=== PATIENT | male | born 1935 | race Caucasian/White ===

== ENCOUNTER 2018-12-11 14:52 | Inpatient (IN) ==
[2018-12-11] MEDS ORDERED: ONDANSETRON 4 MG/2 ML VIAL IV PRN (23:26)
[2018-12-11] MEDS ORDERED: ACETAMINOPHEN 325 MG TABLET PO PRN (23:26)
[2018-12-11 23:49] LABS: Basophils % 0.2 % (0.0-0.8); Hematocrit 38.7 VOL% (42.0-52.0); Hemoglobin 13.5 GM/DL (14.0-18.0); Immature Granulocytes % 0.7 %; Immature Granulocytes Absolute 0.07 #; Lymphocytes # 1.3 10*3/uL (1.4-4.0); Lymphocytes % 11.8 % (21.2-54.2); Mean Corpuscular HGB Conc 34.9 GM/DL (32-36); Mean Corpuscular Volume 97.2 FL (87-102); Mean Platelet Volume 10.7 FL (9.6-12.0); Monocytes % 9.7 % (1.7-12.7); NRBC # 0.04 10*3/uL; Neutrophils % 77.6 % (38.7-73.9); Platelet Count 240 T/CUMM (130-400); Red Blood Count 3.98 MC/CUMM (3.8-5.5); Red Cell Distribution Width 19.4 % (9.3-17.3); White Blood Count 10.7 T/CUMM (4-12)
[2018-12-11] MEDS: methylPREDNISolone SOD SUC 40 MG/1 ML VIAL IV SCH (23:56)
[2018-12-12 00:12] LABS: Albumin 3.5 G/DL (3.4-5.0); Bilirubin,Total 0.7 MG/DL (0.2-1.0); Calcium 7.9 MG/DL (8.5-10.1); Osmolality,Calculated 261.9 MOS/KG (273-304); Total Protein 7.6 G/DL (6.4-8.3)
[2018-12-12] MEDS: ALBUTEROL/IPRATROPIUM 3 ML NEB RESP TX SCH ×6 (03:41→23:54)
[2018-12-12 05:33] LABS: Calcium 8.1 MG/DL (8.5-10.1); Osmolality,Calculated 270.4 MOS/KG (273-304); Risk Ratio 2.6; Thyroid Stimulating Hormone 0.556 uIU/ml (0.358-3.74); VLDL CHOLESTEROL 18.8 MG/DL
[2018-12-12] MEDS: ASPIRIN EC 81 MG TABLET PO SCH (09:23)
[2018-12-12] MEDS: METOPROLOL TARTRATE 25 MG TABLET PO SCH ×2 (09:24→21:37)
[2018-12-12] MEDS: AZITHROMYCIN 250 MG TABLET PO SCH (09:25)
[2018-12-12] MEDS: PANTOPRAZOLE 40 MG TABLET PO SCH (09:25)
[2018-12-12] MEDS: methylPREDNISolone SOD SUC 40 MG/1 ML VIAL IV SCH ×2 (09:25→16:36)
[2018-12-12] MEDS: FLUTICASONE/SALMETEROL 250-50 DISKUS 14 DOSE INH SCH ×2 (09:26→21:37)
[2018-12-12] MEDS: ENOXAPARIN 40 MG/0.4 ML SYRINGE SUBCUT SCH (09:26)
[2018-12-13] MEDS: methylPREDNISolone SOD SUC 40 MG/1 ML VIAL IV SCH ×3 (01:35→16:31)
[2018-12-13] MEDS: ALBUTEROL/IPRATROPIUM 3 ML NEB RESP TX SCH ×5 (03:35→20:49)
[2018-12-13 05:20] LABS: Basophils % 0.1 % (0.0-0.8); Hematocrit 36.2 VOL% (42.0-52.0); Hemoglobin 12.4 GM/DL (14.0-18.0); Immature Granulocytes % 0.5 %; Immature Granulocytes Absolute 0.04 #; Lymphocytes # 1.1 10*3/uL (1.4-4.0); Lymphocytes % 13.7 % (21.2-54.2); Mean Corpuscular HGB Conc 34.3 GM/DL (32-36); Mean Corpuscular Volume 98.1 FL (87-102); Mean Platelet Volume 11.4 FL (9.6-12.0); Monocytes % 4.8 % (1.7-12.7); NRBC # 0.03 10*3/uL; Neutrophils % 80.9 % (38.7-73.9); Platelet Count 210 T/CUMM (130-400); Red Blood Count 3.69 MC/CUMM (3.8-5.5); Red Cell Distribution Width 19.5 % (9.3-17.3); White Blood Count 7.7 T/CUMM (4-12)
[2018-12-13 06:04] LABS: Calcium 8.6 MG/DL (8.5-10.1)
[2018-12-13] MEDS: ENOXAPARIN 40 MG/0.4 ML SYRINGE SUBCUT SCH (10:08)
[2018-12-13] MEDS: ASPIRIN EC 81 MG TABLET PO SCH (10:09)
[2018-12-13] MEDS: AZITHROMYCIN 250 MG TABLET PO SCH (10:09)
[2018-12-13] MEDS: METOPROLOL TARTRATE 25 MG TABLET PO SCH ×2 (10:09→21:15)
[2018-12-13] MEDS: FLUTICASONE/SALMETEROL 250-50 DISKUS 14 DOSE INH SCH ×2 (10:09→21:15)
[2018-12-13] MEDS: PANTOPRAZOLE 40 MG TABLET PO SCH (10:09)
[2018-12-14] MEDS: ALBUTEROL/IPRATROPIUM 3 ML NEB RESP TX SCH ×4 (00:19→11:05)
[2018-12-14] MEDS: methylPREDNISolone SOD SUC 40 MG/1 ML VIAL IV SCH ×2 (01:08→09:47)
[2018-12-14 06:56] LABS: Basophils % 0.2 % (0.0-0.8); Hematocrit 36.4 VOL% (42.0-52.0); Hemoglobin 12.3 GM/DL (14.0-18.0); Immature Granulocytes % 0.9 %; Immature Granulocytes Absolute 0.06 #; Lymphocytes # 0.8 10*3/uL (1.4-4.0); Lymphocytes % 12.4 % (21.2-54.2); Mean Corpuscular HGB Conc 33.8 GM/DL (32-36); Mean Corpuscular Volume 98.6 FL (87-102); Mean Platelet Volume 11.7 FL (9.6-12.0); Monocytes % 5.7 % (1.7-12.7); NRBC # 0.02 10*3/uL; Neutrophils % 80.8 % (38.7-73.9); Platelet Count 203 T/CUMM (130-400); Red Blood Count 3.69 MC/CUMM (3.8-5.5); Red Cell Distribution Width 19.8 % (9.3-17.3); White Blood Count 6.5 T/CUMM (4-12)
[2018-12-14 07:25] LABS: Calcium 7.9 MG/DL (8.5-10.1); Osmolality,Calculated 273.1 MOS/KG (273-304)
[2018-12-14] MEDS ORDERED: TRIAMTERENE/HCTZ 37.5-25 MG TABLET PO SCH (09:00)
[2018-12-14] MEDS ORDERED: ATORVASTATIN 10 MG TABLET PO SCH (09:00)
[2018-12-14] MEDS ORDERED: CLOPIDOGREL 75 MG TABLET PO SCH (09:00)
[2018-12-14] MEDS ORDERED: amLODIPine 5 MG TABLET PO SCH (09:00)
[2018-12-14] MEDS ORDERED: ASCORBIC ACID 500 MG TABLET PO SCH (09:00)
[2018-12-14] MEDS ORDERED: ENALAPRIL 20 MG TABLET PO SCH (09:00)
[2018-12-14] MEDS: ASPIRIN EC 81 MG TABLET PO SCH (09:44)
[2018-12-14] MEDS: AZITHROMYCIN 250 MG TABLET PO SCH (09:46)
[2018-12-14] MEDS: FLUTICASONE/SALMETEROL 250-50 DISKUS 14 DOSE INH SCH (09:47)
[2018-12-14] MEDS: ENOXAPARIN 40 MG/0.4 ML SYRINGE SUBCUT SCH (09:47)
[2018-12-14] MEDS: PANTOPRAZOLE 40 MG TABLET PO SCH (09:47)
[2018-12-14] MEDS: METOPROLOL TARTRATE 25 MG TABLET PO SCH (09:47)
[2018-12-14 11:36] VITALS: BP 129/108
== END 2018-12-14 12:52 | disposition home health service (06) | DRG 191 ==
LOC: N.2E
PROVIDERS: ADMIT Internal Medicine Geriatric Medicine; ATTEND Internal Medicine Geriatric Medicine

== ENCOUNTER 2020-12-02 19:29 | Inpatient (IN) ==
[2020-12-02 20:57] LABS: Basophils # 0.1 10*3/uL (0.0-0.2); Basophils % 0.4 % (0.0-0.8); Eosinophils % 0.2 % (0.00-10.9); Hematocrit 28.9 VOL% (42.0-52.0); Hemoglobin 9.9 GM/DL (14.0-18.0); Immature Granulocytes % 0.9 %; Immature Granulocytes Absolute 0.11 #; Lymphocytes % 8.2 % (21.2-54.2); Mean Corpuscular HGB Conc 34.3 GM/DL (32-36); Mean Corpuscular Volume 95.7 FL (87-102); Mean Platelet Volume 11.5 FL (9.6-12.0); Monocytes % 5.8 % (1.7-12.7); Neutrophils % 84.5 % (38.7-73.9); Platelet Count 234 T/CUMM (130-400); Red Blood Count 3.02 MC/CUMM (3.8-5.5); Red Cell Distribution Width 16.6 % (9.3-17.3); White Blood Count 12.2 T/CUMM (4-12)
[2020-12-02 21:22] LABS: Bilirubin,Total 0.9 MG/DL (0.20-1.00); Calcium 8.1 MG/DL (8.5-10.1); Osmolality,Calculated 264.7 MOS/KG (273-304); Potassium 3.8 MMOL/L (3.5-5.1); Total Protein 6.3 G/DL (6.4-8.2)
[2020-12-02 21:43] LABS: Thyroid Stimulating Hormone 1.17 uIU/ml (0.358-3.74)
[2020-12-02] MEDS ORDERED: SODIUM CHLORIDE 0.9% 1,000 ML IV STA (22:16)
[2020-12-02] MEDS ORDERED: cefTRIAXone 1,000 MG in SODIUM CHLORIDE 0.9% 100 ML IV STA (22:16)
[2020-12-02] MEDS ORDERED: ONDANSETRON 4 MG/2 ML VIAL IV PRN (23:54)
[2020-12-02] MEDS ORDERED: ACETAMINOPHEN 325 MG TABLET PO PRN (23:54)
[2020-12-02] MEDS ORDERED: ALBUTEROL/IPRATROPIUM 3 ML NEB RESP TX PRN (23:54)
[2020-12-03] MEDS ORDERED: MAGNESIUM SULF RIDER 1 GM/100 ML PREMIX IV ONE (00:08)
[2020-12-03 00:32] LABS: Bacteria,Urine Occasional /HPF (Few); Bilirubin,Urine Negative (Negative); Blood, Urine Small mg/dL (Negative); Glucose,Urine (UA) Negative (Negative); Ketones,Urine Negative (Negative); Mucus,Urine Occasional /LPF (Occasional); Nitrite,Urine Positive (Negative); Protein,Urine Negative; RBC,Urine 7 /HPF (0-4); Squamous Epithelial Cell,Urine Occasional /HPF (0-10); Urine Appearance CLEAR (Clear); Urine Color Yellow (Yellow); Urine Specific Gravity 1.011 (1.001-1.035)
[2020-12-03] MEDS: AZITHROMYCIN INJ 500 MG in SODIUM CHLORIDE 0.9% 250 ML IV SCH (01:00)
[2020-12-03] MEDS: ENOXAPARIN 40 MG/0.4 ML SYRINGE SUBCUT SCH ×2 (01:20→20:42)
[2020-12-03 07:17] LABS: Basophils % 0.5 % (0.0-0.8); Eosinophils # 0.1 10*3/uL (0.0-0.87); Eosinophils % 1.7 % (0.00-10.9); Hemoglobin 9.2 GM/DL (14.0-18.0); Immature Granulocytes % 0.7 %; Immature Granulocytes Absolute 0.06 #; Lymphocytes # 1.2 10*3/uL (1.4-4.0); Lymphocytes % 14.4 % (21.2-54.2); Mean Corpuscular HGB Conc 34.1 GM/DL (32-36); Mean Corpuscular Volume 95.1 FL (87-102); Monocytes % 7.7 % (1.7-12.7); Platelet Count 205 T/CUMM (130-400); Red Blood Count 2.84 MC/CUMM (3.8-5.5); Red Cell Distribution Width 16.6 % (9.3-17.3)
[2020-12-03 07:50] LABS: Albumin 2.6 G/DL (3.4-5.0); Bilirubin,Total 0.5 MG/DL (0.20-1.00); Calcium 8.3 MG/DL (8.5-10.1); Osmolality,Calculated 267.4 MOS/KG (273-304); Potassium 3.3 MMOL/L (3.5-5.1); Total Protein 6.4 G/DL (6.4-8.2)
[2020-12-03] MEDS ORDERED: TRIAMTERENE/HCTZ 37.5-25 MG TABLET PO SCH (09:00)
[2020-12-03] MEDS: ENALAPRIL 20 MG TABLET PO SCH (09:07)
[2020-12-03] MEDS: guaiFENesin/DM ER 600-30 MG TABLET PO SCH ×2 (09:08→20:45)
[2020-12-03] MEDS: METOPROLOL TARTRATE 25 MG TABLET PO SCH ×2 (09:08→20:42)
[2020-12-03] MEDS: TAMSULOSIN 0.4 MG CAPSULE PO SCH (09:09)
[2020-12-03] MEDS: ASPIRIN EC 81 MG TABLET PO SCH (09:09)
[2020-12-03] MEDS: MECLIZINE 12.5 MG TABLET PO SCH ×3 (09:09→20:42)
[2020-12-03] MEDS: PANTOPRAZOLE 40 MG TABLET PO SCH (09:09)
[2020-12-03] MEDS: CLOPIDOGREL 75 MG TABLET PO SCH (09:09)
[2020-12-03] MEDS ORDERED: BENZONATATE 100 MG CAPSULE PO SCH (21:00)
[2020-12-04] MEDS: cefTRIAXone 1,000 MG in SODIUM CHLORIDE 0.9% 100 ML IV SCH (00:35)
[2020-12-04] MEDS: ENOXAPARIN 40 MG/0.4 ML SYRINGE SUBCUT SCH (00:35)
[2020-12-04] MEDS: AZITHROMYCIN INJ 500 MG in SODIUM CHLORIDE 0.9% 250 ML IV SCH ×2 (01:20→17:04)
[2020-12-04 05:00] LABS: Basophils % 0.6 % (0.0-0.8); Eosinophils # 0.2 10*3/uL (0.0-0.87); Eosinophils % 3.4 % (0.00-10.9); Hematocrit 26.9 VOL% (42.0-52.0); Hemoglobin 9.3 GM/DL (14.0-18.0); Immature Granulocytes % 0.9 %; Immature Granulocytes Absolute 0.06 #; Mean Corpuscular HGB Conc 34.6 GM/DL (32-36); Mean Corpuscular Volume 95.1 FL (87-102); Monocytes % 9.3 % (1.7-12.7); Neutrophils % 71.8 % (38.7-73.9); Platelet Count 206 T/CUMM (130-400); Red Blood Count 2.83 MC/CUMM (3.8-5.5)
[2020-12-04 05:24] LABS: Calcium 8.1 MG/DL (8.5-10.1); Osmolality,Calculated 263.5 MOS/KG (273-304); Potassium 2.9 MMOL/L (3.5-5.1)
[2020-12-04] MEDS ORDERED: POTASSIUM CHLORIDE 20 MEQ TABLET PO ONE (07:18)
[2020-12-04] MEDS: guaiFENesin/DM ER 600-30 MG TABLET PO SCH ×2 (09:31→21:26)
[2020-12-04] MEDS: TAMSULOSIN 0.4 MG CAPSULE PO SCH (09:31)
[2020-12-04] MEDS: CLOPIDOGREL 75 MG TABLET PO SCH (09:32)
[2020-12-04] MEDS: PANTOPRAZOLE 40 MG TABLET PO SCH (09:32)
[2020-12-04] MEDS: ASPIRIN EC 81 MG TABLET PO SCH (09:32)
[2020-12-04] MEDS: MECLIZINE 12.5 MG TABLET PO SCH ×3 (09:34→21:26)
[2020-12-04] MEDS: ENALAPRIL 20 MG TABLET PO SCH (09:34)
[2020-12-04] MEDS: METOPROLOL TARTRATE 25 MG TABLET PO SCH ×2 (09:35→21:26)
[2020-12-04] MEDS ORDERED: KETOROLAC 15 MG/1 ML VIAL IV ONE (10:01)
[2020-12-04] MEDS: BENZONATATE 100 MG CAPSULE PO SCH ×2 (11:04→21:26)
[2020-12-04] MEDS: DICLOFENAC 1% GEL 100 GM TUBE TOP SCH ×3 (11:04→21:57)
[2020-12-04] MEDS: ALBUTEROL/IPRATROPIUM 3 ML NEB RESP TX SCH ×2 (15:12→20:08)
[2020-12-05] MEDS: ALBUTEROL/IPRATROPIUM 3 ML NEB RESP TX SCH ×4 (00:11→19:24)
[2020-12-05] MEDS: ENOXAPARIN 40 MG/0.4 ML SYRINGE SUBCUT SCH (01:28)
[2020-12-05] MEDS: cefTRIAXone 1,000 MG in SODIUM CHLORIDE 0.9% 100 ML IV SCH (01:28)
[2020-12-05] MEDS ORDERED: POTASSIUM CHLORIDE 20 MEQ TABLET PO ONE (07:22)
[2020-12-05] MEDS: ENALAPRIL 20 MG TABLET PO SCH (10:37)
[2020-12-05] MEDS: MECLIZINE 12.5 MG TABLET PO SCH ×3 (10:37→21:04)
[2020-12-05] MEDS: BENZONATATE 100 MG CAPSULE PO SCH ×2 (10:37→21:04)
[2020-12-05] MEDS: ASPIRIN EC 81 MG TABLET PO SCH (10:37)
[2020-12-05] MEDS: PANTOPRAZOLE 40 MG TABLET PO SCH (10:37)
[2020-12-05] MEDS: TAMSULOSIN 0.4 MG CAPSULE PO SCH (10:38)
[2020-12-05] MEDS: guaiFENesin/DM ER 600-30 MG TABLET PO SCH ×2 (10:38→21:04)
[2020-12-05] MEDS: CLOPIDOGREL 75 MG TABLET PO SCH (10:38)
[2020-12-05] MEDS: METOPROLOL TARTRATE 25 MG TABLET PO SCH ×2 (10:39→21:05)
[2020-12-05] MEDS: DICLOFENAC 1% GEL 100 GM TUBE TOP SCH ×3 (10:39→21:18)
[2020-12-05] MEDS: AZITHROMYCIN INJ 500 MG in SODIUM CHLORIDE 0.9% 250 ML IV SCH (13:30)
[2020-12-05] MEDS: MELOXICAM 7.5 MG TABLET PO SCH (13:30)
[2020-12-06] MEDS: ALBUTEROL/IPRATROPIUM 3 ML NEB RESP TX SCH ×4 (00:15→19:25)
[2020-12-06] MEDS: cefTRIAXone 1,000 MG in SODIUM CHLORIDE 0.9% 100 ML IV SCH ×2 (00:51→21:30)
[2020-12-06] MEDS: ENOXAPARIN 40 MG/0.4 ML SYRINGE SUBCUT SCH ×3 (00:51→22:30)
[2020-12-06 05:30] LABS: Basophils % 0.6 % (0.0-0.8); Eosinophils # 0.4 10*3/uL (0.0-0.87); Eosinophils % 5.1 % (0.00-10.9); Hematocrit 25.1 VOL% (42.0-52.0); Hemoglobin 8.5 GM/DL (14.0-18.0); Immature Granulocytes % 0.8 %; Immature Granulocytes Absolute 0.06 #; Lymphocytes # 1.2 10*3/uL (1.4-4.0); Lymphocytes % 16.6 % (21.2-54.2); Mean Corpuscular HGB Conc 33.9 GM/DL (32-36); Mean Corpuscular Volume 96.9 FL (87-102); Mean Platelet Volume 11.7 FL (9.6-12.0); Monocytes % 8.7 % (1.7-12.7); Neutrophils % 68.2 % (38.7-73.9); Platelet Count 216 T/CUMM (130-400); Red Blood Count 2.59 MC/CUMM (3.8-5.5); Red Cell Distribution Width 16.6 % (9.3-17.3); White Blood Count 7.1 T/CUMM (4-12)
[2020-12-06 06:00] LABS: Osmolality,Calculated 268.1 MOS/KG (273-304)
[2020-12-06] MEDS ORDERED: BISACODYL 5 MG TABLET PO ONE (09:09)
[2020-12-06] MEDS: POLYETHYLENE GLYCOL POWDER 17 GM PACK PO SCH (09:41)
[2020-12-06] MEDS: guaiFENesin/DM ER 600-30 MG TABLET PO SCH ×2 (09:42→21:17)
[2020-12-06] MEDS: ASPIRIN EC 81 MG TABLET PO SCH (09:42)
[2020-12-06] MEDS: ENALAPRIL 20 MG TABLET PO SCH (09:43)
[2020-12-06] MEDS: METOPROLOL TARTRATE 25 MG TABLET PO SCH ×2 (09:43→21:17)
[2020-12-06] MEDS: TAMSULOSIN 0.4 MG CAPSULE PO SCH (09:44)
[2020-12-06] MEDS: MELOXICAM 7.5 MG TABLET PO SCH (09:44)
[2020-12-06] MEDS: PANTOPRAZOLE 40 MG TABLET PO SCH (09:44)
[2020-12-06] MEDS: BENZONATATE 100 MG CAPSULE PO SCH ×2 (09:44→21:17)
[2020-12-06] MEDS: CLOPIDOGREL 75 MG TABLET PO SCH (09:44)
[2020-12-06] MEDS: DICLOFENAC 1% GEL 100 GM TUBE TOP SCH ×3 (09:45→21:20)
[2020-12-06] MEDS: MECLIZINE 12.5 MG TABLET PO SCH ×3 (09:48→21:17)
[2020-12-06] MEDS: AZITHROMYCIN INJ 500 MG in SODIUM CHLORIDE 0.9% 250 ML IV SCH (15:11)
[2020-12-07] MEDS: ALBUTEROL/IPRATROPIUM 3 ML NEB RESP TX SCH ×4 (01:14→20:20)
[2020-12-07] MEDS ORDERED: FUROSEMIDE 40 MG/4 ML VIAL IV ONE (08:12)
[2020-12-07] MEDS: POLYETHYLENE GLYCOL POWDER 17 GM PACK PO SCH (08:18)
[2020-12-07] MEDS: MELOXICAM 7.5 MG TABLET PO SCH (08:18)
[2020-12-07] MEDS: ENALAPRIL 20 MG TABLET PO SCH (08:18)
[2020-12-07] MEDS: MECLIZINE 12.5 MG TABLET PO SCH ×3 (08:18→20:49)
[2020-12-07] MEDS: CLOPIDOGREL 75 MG TABLET PO SCH (08:18)
[2020-12-07] MEDS: TAMSULOSIN 0.4 MG CAPSULE PO SCH (08:18)
[2020-12-07] MEDS: guaiFENesin/DM ER 600-30 MG TABLET PO SCH ×2 (08:19→20:49)
[2020-12-07] MEDS: ASPIRIN EC 81 MG TABLET PO SCH (08:19)
[2020-12-07] MEDS: METOPROLOL TARTRATE 25 MG TABLET PO SCH ×2 (08:19→20:48)
[2020-12-07] MEDS: PANTOPRAZOLE 40 MG TABLET PO SCH (08:19)
[2020-12-07] MEDS: BENZONATATE 100 MG CAPSULE PO SCH ×2 (08:19→20:49)
[2020-12-07] MEDS: DICLOFENAC 1% GEL 100 GM TUBE TOP SCH ×3 (08:20→20:49)
[2020-12-07] MEDS: AZITHROMYCIN INJ 500 MG in SODIUM CHLORIDE 0.9% 250 ML IV SCH (16:30)
[2020-12-07] MEDS: cefTRIAXone 1,000 MG in SODIUM CHLORIDE 0.9% 100 ML IV SCH ×2 (20:49→23:18)
[2020-12-07] MEDS: ENOXAPARIN 40 MG/0.4 ML SYRINGE SUBCUT SCH ×2 (20:49→23:20)
[2020-12-08] MEDS: ALBUTEROL/IPRATROPIUM 3 ML NEB RESP TX SCH ×2 (00:29→07:51)
[2020-12-08 05:36] LABS: Basophils # 0.1 10*3/uL (0.0-0.2); Basophils % 0.8 % (0.0-0.8); Eosinophils # 0.4 10*3/uL (0.0-0.87); Eosinophils % 5.4 % (0.00-10.9); Hematocrit 26.5 VOL% (42.0-52.0); Immature Granulocytes % 0.6 %; Immature Granulocytes Absolute 0.04 #; Lymphocytes # 1.9 10*3/uL (1.4-4.0); Lymphocytes % 27.1 % (21.2-54.2); Mean Corpuscular Volume 97.1 FL (87-102); Mean Platelet Volume 11.5 FL (9.6-12.0); Monocytes % 8.6 % (1.7-12.7); Neutrophils % 57.5 % (38.7-73.9); Platelet Count 236 T/CUMM (130-400); Red Blood Count 2.73 MC/CUMM (3.8-5.5); Red Cell Distribution Width 16.7 % (9.3-17.3); White Blood Count 7.1 T/CUMM (4-12)
[2020-12-08 06:01] LABS: Calcium 8.3 MG/DL (8.5-10.1); Osmolality,Calculated 267.2 MOS/KG (273-304); Potassium 3.6 MMOL/L (3.5-5.1)
[2020-12-08] MEDS: CLOPIDOGREL 75 MG TABLET PO SCH (08:44)
[2020-12-08] MEDS: BENZONATATE 100 MG CAPSULE PO SCH (08:44)
[2020-12-08] MEDS: guaiFENesin/DM ER 600-30 MG TABLET PO SCH (08:45)
[2020-12-08] MEDS: PANTOPRAZOLE 40 MG TABLET PO SCH (08:45)
[2020-12-08] MEDS: ASPIRIN EC 81 MG TABLET PO SCH (08:45)
[2020-12-08] MEDS: MECLIZINE 12.5 MG TABLET PO SCH (08:45)
[2020-12-08] MEDS: TAMSULOSIN 0.4 MG CAPSULE PO SCH (08:45)
[2020-12-08] MEDS: METOPROLOL TARTRATE 25 MG TABLET PO SCH (08:45)
[2020-12-08] MEDS: POLYETHYLENE GLYCOL POWDER 17 GM PACK PO SCH (08:45)
[2020-12-08] MEDS: MELOXICAM 7.5 MG TABLET PO SCH (08:45)
[2020-12-08] MEDS: ENALAPRIL 20 MG TABLET PO SCH (08:45)
[2020-12-08] MEDS: DICLOFENAC 1% GEL 100 GM TUBE TOP SCH (08:46)
[2020-12-08 11:07] VITALS: BP 135/77
== END 2020-12-08 13:48 | disposition home health service (06) | DRG 194 ==
LOC: EDUNIT# → EDBD → N.ED 19:29 → N.EDINP 19:29 → N.4E 12-03 00:29
PROVIDERS: ADMIT Internal Medicine; ATTEND Internal Medicine

== ENCOUNTER 2020-12-24 19:04 | Inpatient (IN) ==
[2020-12-24 19:41] LABS: Basophils % 0.4 % (0.0-0.8); Eosinophils # 0.1 10*3/uL (0.0-0.87); Eosinophils % 0.8 % (0.00-10.9); Hematocrit 29.1 VOL% (42.0-52.0); Hemoglobin 10.1 GM/DL (14.0-18.0); Immature Granulocytes % 0.4 %; Immature Granulocytes Absolute 0.03 #; Lymphocytes # 0.9 10*3/uL (1.4-4.0); Mean Corpuscular HGB Conc 34.7 GM/DL (32-36); Mean Corpuscular Volume 95.1 FL (87-102); Mean Platelet Volume 11.8 FL (9.6-12.0); Monocytes % 6.8 % (1.7-12.7); Neutrophils % 80.6 % (38.7-73.9); Platelet Count 215 T/CUMM (130-400); Red Blood Count 3.06 MC/CUMM (3.8-5.5); Red Cell Distribution Width 16.8 % (9.3-17.3); White Blood Count 7.7 T/CUMM (4-12)
[2020-12-24 19:50] LABS: Bilirubin,Urine Negative (Negative); Blood, Urine Negative (Negative); Glucose,Urine (UA) Negative (Negative); Ketones,Urine Negative (Negative); Mucus,Urine Occasional /LPF (Occasional); Nitrite,Urine Negative (Negative); Protein,Urine Negative; RBC,Urine 2 /HPF (0-4); Squamous Epithelial Cell,Urine Occasional /HPF (0-10); Urine Appearance CLEAR (Clear); Urine Color Yellow (Yellow); Urine Specific Gravity 1.012 (1.001-1.035)
[2020-12-24 19:58] LABS: Bilirubin,Total 0.6 MG/DL (0.20-1.00); Calcium 8.9 MG/DL (8.5-10.1); Osmolality,Calculated 259.1 MOS/KG (273-304); Potassium 3.1 MMOL/L (3.5-5.1); Total Protein 7.4 G/DL (6.4-8.2)
[2020-12-24] MEDS ORDERED: SODIUM CHLORIDE 0.9% 1,000 ML IV STA (21:01)
[2020-12-24] MEDS ORDERED: MORPHINE 2 MG/1 ML SYRINGE IV PRN (21:36)
[2020-12-24] MEDS ORDERED: ACETAMINOPHEN 325 MG TABLET PO PRN (21:36)
[2020-12-24] MEDS ORDERED: NICOTINE 21 MG/24 HR PATCH TRANSDERM PRN (21:36)
[2020-12-24] MEDS ORDERED: hydrALAZINE 20 MG/1 ML VIAL IV PRN (21:36)
[2020-12-24] MEDS ORDERED: DEXTROSE 50% 25 GM/50 ML VIAL IV PRN (21:36)
[2020-12-24] MEDS ORDERED: GLUCAGON 1 MG VIAL IM PRN (21:36)
[2020-12-24] MEDS ORDERED: diphenhydrAMINE CAP 25 MG CAPSULE PO PRN (21:36)
[2020-12-24] MEDS ORDERED: TOLVAPTAN 15 MG TABLET PO ONE (23:00)
[2020-12-24] MEDS: guaiFENesin/DM ER 600-30 MG TABLET PO PRN (23:18)
[2020-12-24] MEDS: ZALEPLON 5 MG CAPSULE PO PRN (23:19)
[2020-12-25] MEDS: ALBUTEROL/IPRATROPIUM 3 ML NEB RESP TX SCH ×4 (03:03→19:40)
[2020-12-25 05:26] LABS: Basophils % 0.2 % (0.0-0.8); Eosinophils % 0.6 % (0.00-10.9); Hemoglobin 9.4 GM/DL (14.0-18.0); Immature Granulocytes % 0.5 %; Immature Granulocytes Absolute 0.03 #; Lymphocytes # 1.2 10*3/uL (1.4-4.0); Lymphocytes % 19.5 % (21.2-54.2); Mean Corpuscular HGB Conc 33.6 GM/DL (32-36); Mean Corpuscular Volume 93.6 FL (87-102); Mean Platelet Volume 11.6 FL (9.6-12.0); Monocytes % 7.4 % (1.7-12.7); Neutrophils % 71.8 % (38.7-73.9); Platelet Count 209 T/CUMM (130-400); Red Blood Count 2.99 MC/CUMM (3.8-5.5); Red Cell Distribution Width 16.6 % (9.3-17.3); White Blood Count 6.2 T/CUMM (4-12)
[2020-12-25 05:42] LABS: Calcium 8.8 MG/DL (8.5-10.1); Osmolality,Calculated 260.8 MOS/KG (273-304)
[2020-12-25] MEDS: POTASSIUM CHLORIDE 20 MEQ TABLET PO PRN (09:02)
[2020-12-25] MEDS: BISACODYL 5 MG TABLET PO SCH (09:03)
[2020-12-25] MEDS: PANTOPRAZOLE 40 MG TABLET PO SCH (09:04)
[2020-12-25] MEDS: ENOXAPARIN 40 MG/0.4 ML SYRINGE SUBCUT SCH (09:04)
[2020-12-25] MEDS: DOCUSATE SODIUM 100 MG CAPSULE PO SCH ×2 (09:04→20:38)
[2020-12-25] MEDS: ONDANSETRON 4 MG/2 ML VIAL IV PRN (12:32)
[2020-12-25] MEDS ORDERED: MAGNESIUM CITRATE 300 ML BOTTLE PO ONE (14:00)
[2020-12-25] MEDS: ZALEPLON 5 MG CAPSULE PO PRN (20:38)
[2020-12-26] MEDS: ALBUTEROL/IPRATROPIUM 3 ML NEB RESP TX SCH ×4 (01:37→19:57)
[2020-12-26] MEDS: DOCUSATE SODIUM 100 MG CAPSULE PO SCH ×2 (08:59→21:08)
[2020-12-26] MEDS: POTASSIUM CHLORIDE 20 MEQ TABLET PO PRN ×4 (08:59→21:08)
[2020-12-26] MEDS: PANTOPRAZOLE 40 MG TABLET PO SCH (09:00)
[2020-12-26] MEDS: BISACODYL 5 MG TABLET PO SCH (09:00)
[2020-12-26] MEDS: LACTULOSE 20 GM/30 ML UDCUP PO PRN ×2 (09:01→21:08)
[2020-12-26] MEDS: ENOXAPARIN 40 MG/0.4 ML SYRINGE SUBCUT SCH (09:01)
[2020-12-26] MEDS: POTASSIUM CHLORIDE RIDER 20 MEQ/100 ML PREMIX IV PRN (15:08)
[2020-12-26] MEDS: ONDANSETRON 4 MG/2 ML VIAL IV PRN (21:32)
[2020-12-27] MEDS: ALBUTEROL/IPRATROPIUM 3 ML NEB RESP TX SCH ×4 (00:24→18:29)
[2020-12-27] MEDS: ONDANSETRON 4 MG/2 ML VIAL IV PRN (06:00)
[2020-12-27 06:08] LABS: Calcium 8.8 MG/DL (8.5-10.1); Osmolality,Calculated 254.2 MOS/KG (273-304)
[2020-12-27] MEDS: BISACODYL 5 MG TABLET PO SCH (10:03)
[2020-12-27] MEDS: HYDROmorphone 2 MG/1 ML VIAL IV PRN ×2 (10:03→17:00)
[2020-12-27] MEDS: MAGNESIUM CITRATE 300 ML BOTTLE PO SCH (10:04)
[2020-12-27] MEDS: SODIUM CHLORIDE 0.9% 1,000 ML IV SCH (10:04)
[2020-12-27] MEDS: DOCUSATE SODIUM 100 MG CAPSULE PO SCH ×2 (10:04→20:57)
[2020-12-27] MEDS: PANTOPRAZOLE 40 MG TABLET PO SCH (10:04)
[2020-12-27] MEDS: ENOXAPARIN 40 MG/0.4 ML SYRINGE SUBCUT SCH (10:04)
[2020-12-28] MEDS: HYDROmorphone 2 MG/1 ML VIAL IV PRN ×3 (00:18→23:02)
[2020-12-28] MEDS: ALBUTEROL/IPRATROPIUM 3 ML NEB RESP TX SCH ×4 (01:01→20:13)
[2020-12-28] MEDS: ONDANSETRON 4 MG/2 ML VIAL IV PRN (05:19)
[2020-12-28 06:40] LABS: Basophils % 0.1 % (0.0-0.8); Eosinophils % 0.3 % (0.00-10.9); Hematocrit 28.5 VOL% (42.0-52.0); Hemoglobin 9.9 GM/DL (14.0-18.0); Immature Granulocytes % 0.4 %; Immature Granulocytes Absolute 0.03 #; Lymphocytes # 0.6 10*3/uL (1.4-4.0); Lymphocytes % 8.7 % (21.2-54.2); Mean Corpuscular HGB Conc 34.7 GM/DL (32-36); Mean Corpuscular Volume 93.1 FL (87-102); Mean Platelet Volume 10.3 FL (9.6-12.0); Monocytes % 6.6 % (1.7-12.7); Neutrophils % 83.9 % (38.7-73.9); Platelet Count 245 T/CUMM (130-400); Red Blood Count 3.06 MC/CUMM (3.8-5.5); Red Cell Distribution Width 16.5 % (9.3-17.3); White Blood Count 7.3 T/CUMM (4-12)
[2020-12-28 07:10] LABS: Calcium 8.5 MG/DL (8.5-10.1); Osmolality,Calculated 257.2 MOS/KG (273-304); Potassium 4.1 MMOL/L (3.5-5.1)
[2020-12-28] MEDS: SODIUM CHLORIDE 0.9% 1,000 ML IV SCH (09:39)
[2020-12-28] MEDS: ENOXAPARIN 40 MG/0.4 ML SYRINGE SUBCUT SCH (09:42)
[2020-12-28] MEDS: PANTOPRAZOLE 40 MG TABLET PO SCH (09:43)
[2020-12-28] MEDS: MAGNESIUM CITRATE 300 ML BOTTLE PO SCH (09:44)
[2020-12-28] MEDS: DOCUSATE SODIUM 100 MG CAPSULE PO SCH ×2 (09:44→20:34)
[2020-12-28] MEDS: BISACODYL 5 MG TABLET PO SCH (09:44)
[2020-12-28 23:25] LABS: Bilirubin,Urine Negative (Negative); Blood, Urine Negative (Negative); Glucose,Urine (UA) Negative (Negative); Ketones,Urine Negative (Negative); Mucus,Urine Occasional /LPF (Occasional); Nitrite,Urine Negative (Negative); Protein,Urine Negative; RBC,Urine 3 /HPF (0-4); Urine Appearance CLEAR (Clear); Urine Color Yellow (Yellow); Urine Specific Gravity 1.034 (1.001-1.035); Urine Urobilinogen < 2.0 EU/DL (0.2-1.0)
[2020-12-29] MEDS: ALBUTEROL/IPRATROPIUM 3 ML NEB RESP TX SCH ×4 (00:01→19:37)
[2020-12-29] MEDS: SODIUM CHLORIDE 0.9% 1,000 ML IV SCH (03:46)
[2020-12-29 05:00] LABS: Basophils % 0.3 % (0.0-0.8); Eosinophils # 0.1 10*3/uL (0.0-0.87); Eosinophils % 1.1 % (0.00-10.9); Hematocrit 28.1 VOL% (42.0-52.0); Hemoglobin 9.3 GM/DL (14.0-18.0); Immature Granulocytes % 0.4 %; Immature Granulocytes Absolute 0.03 #; Lymphocytes # 1.2 10*3/uL (1.4-4.0); Lymphocytes % 17.2 % (21.2-54.2); Mean Corpuscular HGB Conc 33.1 GM/DL (32-36); Mean Corpuscular Volume 96.6 FL (87-102); Mean Platelet Volume 11.2 FL (9.6-12.0); Platelet Count 253 T/CUMM (130-400); Red Blood Count 2.91 MC/CUMM (3.8-5.5); Red Cell Distribution Width 16.8 % (9.3-17.3); White Blood Count 7.1 T/CUMM (4-12)
[2020-12-29 05:20] LABS: Albumin 2.5 G/DL (3.4-5.0); Bilirubin,Direct 0.13 MG/DL (0.0-0.20); Bilirubin,Indirect 0.5 MG/DL (0.0-1.0); Bilirubin,Total 0.6 MG/DL (0.20-1.00); Calcium 8.4 MG/DL (8.5-10.1); Osmolality,Calculated 258.2 MOS/KG (273-304); Potassium 4.2 MMOL/L (3.5-5.1)
[2020-12-29] MEDS: MAGNESIUM CITRATE 300 ML BOTTLE PO SCH (09:09)
[2020-12-29] MEDS: BISACODYL 5 MG TABLET PO SCH (09:09)
[2020-12-29] MEDS: DOCUSATE SODIUM 100 MG CAPSULE PO SCH ×2 (09:09→20:42)
[2020-12-29] MEDS: PANTOPRAZOLE 40 MG TABLET PO SCH (09:09)
[2020-12-29] MEDS: ENOXAPARIN 40 MG/0.4 ML SYRINGE SUBCUT SCH (09:11)
[2020-12-29] MEDS: HYDROmorphone 2 MG/1 ML VIAL IV PRN ×2 (10:46→16:15)
[2020-12-29] MEDS: PIPERACILLIN/TAZOBACTAM 3,375 MG in SODIUM CHLORIDE 0.9% 100 ML IV SCH ×2 (11:42→17:59)
[2020-12-29] MEDS: VANCOMYCIN INJ 1,500 MG in SODIUM CHLORIDE 0.9% 500 ML IV SCH (15:50)
[2020-12-29] MEDS: BUDESONIDE 0.5 MG/2 ML NEB RESP TX SCH (19:37)
[2020-12-29] MEDS: ZALEPLON 5 MG CAPSULE PO PRN (20:42)
[2020-12-30] MEDS: HYDROmorphone 2 MG/1 ML VIAL IV PRN (00:13)
[2020-12-30] MEDS: ALBUTEROL/IPRATROPIUM 3 ML NEB RESP TX SCH ×4 (00:20→20:07)
[2020-12-30] MEDS: VANCOMYCIN INJ 1,500 MG in SODIUM CHLORIDE 0.9% 500 ML IV SCH ×2 (03:00→16:58)
[2020-12-30] MEDS: SODIUM CHLORIDE 0.9% 1,000 ML IV SCH (03:14)
[2020-12-30] MEDS: PIPERACILLIN/TAZOBACTAM 3,375 MG in SODIUM CHLORIDE 0.9% 100 ML IV SCH ×3 (05:00→21:24)
[2020-12-30 05:44] LABS: Basophils % 0.3 % (0.0-0.8); Eosinophils # 0.2 10*3/uL (0.0-0.87); Eosinophils % 2.3 % (0.00-10.9); Hemoglobin 8.7 GM/DL (14.0-18.0); Immature Granulocytes % 0.8 %; Immature Granulocytes Absolute 0.05 #; Lymphocytes # 1.4 10*3/uL (1.4-4.0); Lymphocytes % 21.1 % (21.2-54.2); Mean Corpuscular HGB Conc 33.5 GM/DL (32-36); Mean Corpuscular Volume 94.5 FL (87-102); Mean Platelet Volume 10.9 FL (9.6-12.0); Monocytes % 10.2 % (1.7-12.7); Neutrophils % 65.3 % (38.7-73.9); Platelet Count 245 T/CUMM (130-400); Red Blood Count 2.75 MC/CUMM (3.8-5.5); Red Cell Distribution Width 16.6 % (9.3-17.3); White Blood Count 6.7 T/CUMM (4-12)
[2020-12-30 06:15] LABS: Calcium 8.3 MG/DL (8.5-10.1); Osmolality,Calculated 256.2 MOS/KG (273-304); Potassium 3.5 MMOL/L (3.5-5.1)
[2020-12-30] MEDS: BUDESONIDE 0.5 MG/2 ML NEB RESP TX SCH ×2 (07:45→20:08)
[2020-12-30] MEDS: BISACODYL 5 MG TABLET PO SCH (09:55)
[2020-12-30] MEDS: PANTOPRAZOLE 40 MG TABLET PO SCH (09:55)
[2020-12-30] MEDS: DOCUSATE SODIUM 100 MG CAPSULE PO SCH ×2 (09:55→21:24)
[2020-12-30] MEDS: ENOXAPARIN 40 MG/0.4 ML SYRINGE SUBCUT SCH (09:56)
[2020-12-30] MEDS: MAGNESIUM CITRATE 300 ML BOTTLE PO SCH (09:58)
[2020-12-30] MEDS: LACTULOSE 20 GM/30 ML UDCUP PO SCH ×4 (11:15→21:50)
[2020-12-30] MEDS: ONDANSETRON 4 MG/2 ML VIAL IV PRN (12:04)
[2020-12-30] MEDS: guaiFENesin/DM ER 600-30 MG TABLET PO PRN (21:24)
[2020-12-30] MEDS: ZALEPLON 5 MG CAPSULE PO PRN (21:24)
[2020-12-30 22:56] LABS: ABG Base Excess 6.7 MMOL/L (-2.5-2.5); ABG HCO3 30.5 MMOL/L (20-26); ABG PCO2 39.2 MM HG (35-48); ABG PH 7.498 (7.35-7.45); ABG TCO2 28.5 MMOL/L (23-27)
[2020-12-31] MEDS: ALBUTEROL/IPRATROPIUM 3 ML NEB RESP TX SCH ×4 (00:31→19:50)
[2020-12-31] MEDS: VANCOMYCIN INJ 1,500 MG in SODIUM CHLORIDE 0.9% 500 ML IV SCH ×2 (03:08→18:30)
[2020-12-31] MEDS: LACTULOSE 20 GM/30 ML UDCUP PO SCH ×4 (04:07→21:56)
[2020-12-31] MEDS: SODIUM CHLORIDE 0.9% 1,000 ML IV SCH ×2 (05:09→17:46)
[2020-12-31] MEDS: PIPERACILLIN/TAZOBACTAM 3,375 MG in SODIUM CHLORIDE 0.9% 100 ML IV SCH ×3 (05:38→21:57)
[2020-12-31] MEDS: BUDESONIDE 0.5 MG/2 ML NEB RESP TX SCH ×2 (07:25→19:51)
[2020-12-31] MEDS: BISACODYL 5 MG TABLET PO SCH (10:03)
[2020-12-31] MEDS: DOCUSATE SODIUM 100 MG CAPSULE PO SCH ×2 (10:30→21:56)
[2020-12-31] MEDS: PANTOPRAZOLE 40 MG TABLET PO SCH (12:17)
[2020-12-31] MEDS: ENOXAPARIN 40 MG/0.4 ML SYRINGE SUBCUT SCH (13:12)
[2021-01-01] MEDS: ALBUTEROL/IPRATROPIUM 3 ML NEB RESP TX SCH ×4 (01:00→19:17)
[2021-01-01] MEDS ORDERED: VANCOMYCIN INJ 1,750 MG in SODIUM CHLORIDE 0.9% 500 ML IV SCH (06:00)
[2021-01-01 06:24] LABS: Basophils % 0.3 % (0.0-0.8); Eosinophils # 0.2 10*3/uL (0.0-0.87); Eosinophils % 3.2 % (0.00-10.9); Hematocrit 21.5 VOL% (42.0-52.0); Hemoglobin 7.2 GM/DL (14.0-18.0); Immature Granulocytes % 0.8 %; Immature Granulocytes Absolute 0.05 #; Lymphocytes # 1.5 10*3/uL (1.4-4.0); Mean Corpuscular HGB Conc 33.5 GM/DL (32-36); Mean Corpuscular Volume 96.4 FL (87-102); Mean Platelet Volume 11.2 FL (9.6-12.0); Monocytes % 8.1 % (1.7-12.7); Neutrophils % 64.6 % (38.7-73.9); Platelet Count 256 T/CUMM (130-400); Red Blood Count 2.23 MC/CUMM (3.8-5.5); Red Cell Distribution Width 16.8 % (9.3-17.3); White Blood Count 6.6 T/CUMM (4-12)
[2021-01-01] MEDS: LACTULOSE 20 GM/30 ML UDCUP PO SCH ×4 (06:31→21:52)
[2021-01-01] MEDS: PIPERACILLIN/TAZOBACTAM 3,375 MG in SODIUM CHLORIDE 0.9% 100 ML IV SCH ×2 (06:45→13:50)
[2021-01-01 06:47] LABS: Calcium 7.5 MG/DL (8.5-10.1); Osmolality,Calculated 262.7 MOS/KG (273-304); Potassium 2.9 MMOL/L (3.5-5.1)
[2021-01-01 06:51] LABS: Albumin 2.4 G/DL (3.4-5.0); Bilirubin,Direct 0.11 MG/DL (0.0-0.20); Bilirubin,Total 1.1 MG/DL (0.20-1.00); Total Protein 4.9 G/DL (6.4-8.2)
[2021-01-01] MEDS: BUDESONIDE 0.5 MG/2 ML NEB RESP TX SCH ×2 (07:03→19:17)
[2021-01-01] MEDS: PANTOPRAZOLE 40 MG TABLET PO SCH (09:40)
[2021-01-01] MEDS: BISACODYL 5 MG TABLET PO SCH (09:40)
[2021-01-01] MEDS: DOCUSATE SODIUM 100 MG CAPSULE PO SCH ×3 (09:40→20:46)
[2021-01-01] MEDS: POTASSIUM CHLORIDE RIDER 20 MEQ/100 ML PREMIX IV PRN ×3 (11:11→17:10)
[2021-01-01] MEDS: SODIUM CHLORIDE 0.9% 1,000 ML IV SCH ×2 (13:19→20:41)
[2021-01-01] MEDS: ENOXAPARIN 40 MG/0.4 ML SYRINGE SUBCUT SCH (13:50)
[2021-01-01] MEDS: AMPICILLIN INJ 2,000 MG in SODIUM CHLORIDE 0.9% 100 ML IV SCH ×2 (17:05→20:41)
[2021-01-02] MEDS: AMPICILLIN INJ 2,000 MG in SODIUM CHLORIDE 0.9% 100 ML IV SCH ×6 (00:55→21:49)
[2021-01-02] MEDS: ALBUTEROL/IPRATROPIUM 3 ML NEB RESP TX SCH ×4 (00:55→19:43)
[2021-01-02] MEDS: LACTULOSE 20 GM/30 ML UDCUP PO SCH ×4 (05:09→21:54)
[2021-01-02] MEDS: HYDROmorphone 2 MG/1 ML VIAL IV PRN (05:22)
[2021-01-02] MEDS: BUDESONIDE 0.5 MG/2 ML NEB RESP TX SCH ×2 (08:11→19:44)
[2021-01-02] MEDS: ENOXAPARIN 40 MG/0.4 ML SYRINGE SUBCUT SCH (08:25)
[2021-01-02] MEDS: BISACODYL 5 MG TABLET PO SCH (08:26)
[2021-01-02] MEDS: POTASSIUM CHLORIDE 20 MEQ TABLET PO PRN ×4 (08:26→13:55)
[2021-01-02] MEDS: DOCUSATE SODIUM 100 MG CAPSULE PO SCH ×2 (08:26→21:54)
[2021-01-02] MEDS: PANTOPRAZOLE 40 MG TABLET PO SCH (08:27)
[2021-01-02] MEDS ORDERED: FUROSEMIDE 40 MG/4 ML VIAL IV ONE (14:43)
[2021-01-02] MEDS: SODIUM CHLORIDE 0.9% 1,000 ML IV SCH (18:10)
[2021-01-02] MEDS: CIPROFLOXACIN INJ 400 MG/200 ML PREMIX IV SCH (19:28)
[2021-01-03] MEDS: AMPICILLIN INJ 2,000 MG in SODIUM CHLORIDE 0.9% 100 ML IV SCH ×6 (00:40→22:28)
[2021-01-03] MEDS: POTASSIUM CHLORIDE RIDER 20 MEQ/100 ML PREMIX IV PRN ×2 (00:43→02:48)
[2021-01-03] MEDS: ALBUTEROL/IPRATROPIUM 3 ML NEB RESP TX SCH ×4 (01:09→19:49)
[2021-01-03] MEDS: LACTULOSE 20 GM/30 ML UDCUP PO SCH ×4 (04:56→22:48)
[2021-01-03] MEDS: BUDESONIDE 0.5 MG/2 ML NEB RESP TX SCH ×2 (07:20→19:49)
[2021-01-03 07:45] LABS: Basophils % 0.5 % (0.0-0.8); Eosinophils # 0.2 10*3/uL (0.0-0.87); Eosinophils % 2.9 % (0.00-10.9); Hematocrit 20.5 VOL% (42.0-52.0); Hemoglobin 6.8 GM/DL (14.0-18.0); Immature Granulocytes % 0.9 %; Immature Granulocytes Absolute 0.05 #; Lymphocytes # 1.4 10*3/uL (1.4-4.0); Lymphocytes % 23.3 % (21.2-54.2); Mean Corpuscular HGB Conc 33.2 GM/DL (32-36); Mean Corpuscular Volume 95.3 FL (87-102); Mean Platelet Volume 10.7 FL (9.6-12.0); Monocytes % 7.6 % (1.7-12.7); Neutrophils % 64.8 % (38.7-73.9); Platelet Count 269 T/CUMM (130-400); Red Blood Count 2.15 MC/CUMM (3.8-5.5); Red Cell Distribution Width 17.2 % (9.3-17.3); White Blood Count 5.8 T/CUMM (4-12)
[2021-01-03] MEDS ORDERED: POTASSIUM CHLORIDE 20 MEQ TABLET PO ONE (07:59)
[2021-01-03 08:10] LABS: Osmolality,Calculated 265.4 MOS/KG (273-304); Potassium 3.6 MMOL/L (3.5-5.1)
[2021-01-03] MEDS: PANTOPRAZOLE 40 MG TABLET PO SCH (09:57)
[2021-01-03] MEDS: DOCUSATE SODIUM 100 MG CAPSULE PO SCH ×2 (09:57→22:47)
[2021-01-03] MEDS: ENOXAPARIN 40 MG/0.4 ML SYRINGE SUBCUT SCH (09:57)
[2021-01-03] MEDS: BISACODYL 5 MG TABLET PO SCH (09:57)
[2021-01-03] MEDS: TAMSULOSIN 0.4 MG CAPSULE PO SCH (10:04)
[2021-01-03] MEDS: METOPROLOL TARTRATE 25 MG TABLET PO SCH ×2 (10:04→22:28)
[2021-01-03] MEDS: ENALAPRIL 20 MG TABLET PO SCH (10:04)
[2021-01-03] MEDS: SODIUM CHLORIDE 0.9% 1,000 ML IV SCH (16:19)
[2021-01-03] MEDS: CIPROFLOXACIN INJ 400 MG/200 ML PREMIX IV SCH (18:11)
[2021-01-04] MEDS: ALBUTEROL/IPRATROPIUM 3 ML NEB RESP TX SCH ×4 (00:12→19:51)
[2021-01-04] MEDS: AMPICILLIN INJ 2,000 MG in SODIUM CHLORIDE 0.9% 100 ML IV SCH ×6 (01:01→20:05)
[2021-01-04] MEDS: LACTULOSE 20 GM/30 ML UDCUP PO SCH ×4 (04:45→22:36)
[2021-01-04 06:23] LABS: Basophils % 0.5 % (0.0-0.8); Eosinophils # 0.2 10*3/uL (0.0-0.87); Eosinophils % 2.8 % (0.00-10.9); Hematocrit 20.2 VOL% (42.0-52.0); Hemoglobin 6.6 GM/DL (14.0-18.0); Immature Granulocytes % 0.8 %; Immature Granulocytes Absolute 0.05 #; Lymphocytes # 1.4 10*3/uL (1.4-4.0); Lymphocytes % 22.7 % (21.2-54.2); Mean Corpuscular HGB Conc 32.7 GM/DL (32-36); Mean Corpuscular Volume 96.7 FL (87-102); Mean Platelet Volume 11.1 FL (9.6-12.0); Monocytes % 7.8 % (1.7-12.7); Neutrophils % 65.4 % (38.7-73.9); Platelet Count 286 T/CUMM (130-400); Red Blood Count 2.09 MC/CUMM (3.8-5.5); Red Cell Distribution Width 17.6 % (9.3-17.3)
[2021-01-04 06:52] LABS: Calcium 8.2 MG/DL (8.5-10.1); Osmolality,Calculated 262.5 MOS/KG (273-304); Potassium 3.3 MMOL/L (3.5-5.1)
[2021-01-04] MEDS: BUDESONIDE 0.5 MG/2 ML NEB RESP TX SCH ×2 (07:23→19:51)
[2021-01-04] MEDS ORDERED: SODIUM CHLORIDE 0.9% 1,000 ML IV PRN (07:47)
[2021-01-04] MEDS ORDERED: POTASSIUM CHLORIDE 20 MEQ TABLET PO ONE (07:50)
[2021-01-04] MEDS: METOPROLOL TARTRATE 25 MG TABLET PO SCH ×2 (09:02→21:12)
[2021-01-04] MEDS: ENALAPRIL 20 MG TABLET PO SCH (09:02)
[2021-01-04] MEDS: PANTOPRAZOLE 40 MG TABLET PO SCH (09:03)
[2021-01-04] MEDS: TAMSULOSIN 0.4 MG CAPSULE PO SCH (09:03)
[2021-01-04] MEDS: BISACODYL 5 MG TABLET PO SCH (09:04)
[2021-01-04] MEDS: DOCUSATE SODIUM 100 MG CAPSULE PO SCH ×2 (09:04→21:12)
[2021-01-04] MEDS: ENOXAPARIN 40 MG/0.4 ML SYRINGE SUBCUT SCH (09:05)
[2021-01-04] MEDS ORDERED: TUBERCULIN SKIN TEST 0.1 ML SYRINGE INTRADERM ONE (14:34)
[2021-01-04] MEDS: CIPROFLOXACIN INJ 400 MG/200 ML PREMIX IV SCH (17:11)
[2021-01-04 17:21] LABS: Hematocrit 28.5 VOL% (42.0-52.0); Hemoglobin 9.4 GM/DL (14.0-18.0)
[2021-01-04] MEDS: PANTOPRAZOLE 40 MG VIAL IV SCH (21:10)
[2021-01-04] MEDS: SODIUM CHLORIDE 0.9% 1,000 ML IV SCH (23:18)
[2021-01-05] MEDS: ALBUTEROL/IPRATROPIUM 3 ML NEB RESP TX SCH ×4 (01:04→19:20)
[2021-01-05] MEDS: AMPICILLIN INJ 2,000 MG in SODIUM CHLORIDE 0.9% 100 ML IV SCH ×6 (01:37→20:57)
[2021-01-05] MEDS: LACTULOSE 20 GM/30 ML UDCUP PO SCH ×4 (05:48→22:47)
[2021-01-05] MEDS: BUDESONIDE 0.5 MG/2 ML NEB RESP TX SCH ×2 (07:15→19:20)
[2021-01-05 07:40] LABS: Basophils # 0.1 10*3/uL (0.0-0.2); Basophils % 0.9 % (0.0-0.8); Eosinophils # 0.1 10*3/uL (0.0-0.87); Eosinophils % 1.9 % (0.00-10.9); Hematocrit 27.7 VOL% (42.0-52.0); Hemoglobin 9.3 GM/DL (14.0-18.0); Immature Granulocytes % 0.7 %; Immature Granulocytes Absolute 0.04 #; Lymphocytes % 16.9 % (21.2-54.2); Mean Corpuscular HGB Conc 33.6 GM/DL (32-36); Mean Corpuscular Volume 94.9 FL (87-102); Mean Platelet Volume 10.1 FL (9.6-12.0); Neutrophils % 71.6 % (38.7-73.9); Platelet Count 258 T/CUMM (130-400); Red Blood Count 2.92 MC/CUMM (3.8-5.5); White Blood Count 5.7 T/CUMM (4-12)
[2021-01-05 08:06] LABS: Calcium 8.1 MG/DL (8.5-10.1); Osmolality,Calculated 262.5 MOS/KG (273-304); Potassium 3.3 MMOL/L (3.5-5.1)
[2021-01-05] MEDS: DOCUSATE SODIUM 100 MG CAPSULE PO SCH ×2 (08:29→20:55)
[2021-01-05] MEDS: TAMSULOSIN 0.4 MG CAPSULE PO SCH (08:29)
[2021-01-05] MEDS: METOPROLOL TARTRATE 25 MG TABLET PO SCH ×2 (08:29→20:55)
[2021-01-05] MEDS: TRIAMTERENE/HCTZ 37.5-25 MG TABLET PO SCH (08:29)
[2021-01-05] MEDS: BISACODYL 5 MG TABLET PO SCH (08:29)
[2021-01-05] MEDS: ENALAPRIL 20 MG TABLET PO SCH (08:30)
[2021-01-05] MEDS: PANTOPRAZOLE 40 MG VIAL IV SCH ×2 (09:14→20:54)
[2021-01-05] MEDS: SODIUM CHLORIDE 0.9% 1,000 ML IV SCH (10:52)
[2021-01-05] MEDS ORDERED: ETOMIDATE 20 MG/10 ML VIAL IV ONE (12:52)
[2021-01-05] MEDS ORDERED: LIDOCAINE 2% 5 ML VIAL ONE (12:52)
[2021-01-05] MEDS: LACTATED RINGERS 1,000 ML IV SCH (13:10)
[2021-01-05] MEDS ORDERED: POTASSIUM CHLORIDE 20 MEQ TABLET PO ONE (17:59)
[2021-01-05] MEDS: CIPROFLOXACIN INJ 400 MG/200 ML PREMIX IV SCH (18:25)
[2021-01-06] MEDS: AMPICILLIN INJ 2,000 MG in SODIUM CHLORIDE 0.9% 100 ML IV SCH ×6 (00:04→20:39)
[2021-01-06] MEDS: ALBUTEROL/IPRATROPIUM 3 ML NEB RESP TX SCH ×4 (00:30→19:35)
[2021-01-06] MEDS: SODIUM CHLORIDE 0.9% 1,000 ML IV SCH ×2 (00:32→23:38)
[2021-01-06] MEDS: LACTULOSE 20 GM/30 ML UDCUP PO SCH ×4 (03:39→22:54)
[2021-01-06 06:23] LABS: Basophils # 0.1 10*3/uL (0.0-0.2); Eosinophils # 0.1 10*3/uL (0.0-0.87); Eosinophils % 2.6 % (0.00-10.9); Hematocrit 26.5 VOL% (42.0-52.0); Hemoglobin 8.6 GM/DL (14.0-18.0); Immature Granulocytes % 0.6 %; Immature Granulocytes Absolute 0.03 #; Lymphocytes # 1.1 10*3/uL (1.4-4.0); Lymphocytes % 20.9 % (21.2-54.2); Mean Corpuscular HGB Conc 32.5 GM/DL (32-36); Mean Corpuscular Volume 97.1 FL (87-102); Mean Platelet Volume 11.1 FL (9.6-12.0); Neutrophils % 65.9 % (38.7-73.9); Platelet Count 253 T/CUMM (130-400); Red Blood Count 2.73 MC/CUMM (3.8-5.5); Red Cell Distribution Width 17.2 % (9.3-17.3)
[2021-01-06 06:48] LABS: Calcium 7.8 MG/DL (8.5-10.1); Osmolality,Calculated 263.5 MOS/KG (273-304); Potassium 3.4 MMOL/L (3.5-5.1)
[2021-01-06] MEDS ORDERED: POTASSIUM CHLORIDE 20 MEQ TABLET PO ONE ×2 (07:07→10:00)
[2021-01-06] MEDS: BUDESONIDE 0.5 MG/2 ML NEB RESP TX SCH ×2 (08:12→19:35)
[2021-01-06] MEDS: TRIAMTERENE/HCTZ 37.5-25 MG TABLET PO SCH (10:18)
[2021-01-06] MEDS: FERROUS SULFATE 325 MG TABLET PO SCH (10:18)
[2021-01-06] MEDS: DOCUSATE SODIUM 100 MG CAPSULE PO SCH ×2 (10:18→20:38)
[2021-01-06] MEDS: guaiFENesin/DM ER 600-30 MG TABLET PO PRN (10:18)
[2021-01-06] MEDS: BISACODYL 5 MG TABLET PO SCH (10:19)
[2021-01-06] MEDS: ENALAPRIL 20 MG TABLET PO SCH (10:19)
[2021-01-06] MEDS: METOPROLOL TARTRATE 25 MG TABLET PO SCH ×2 (10:19→20:38)
[2021-01-06] MEDS: TAMSULOSIN 0.4 MG CAPSULE PO SCH (10:19)
[2021-01-06] MEDS: PANTOPRAZOLE 40 MG VIAL IV SCH ×2 (10:20→20:39)
[2021-01-06] MEDS: ASCORBIC ACID 500 MG TABLET PO SCH (10:20)
[2021-01-06] MEDS: LACTATED RINGERS 1,000 ML IV SCH (14:16)
[2021-01-06] MEDS: CIPROFLOXACIN INJ 400 MG/200 ML PREMIX IV SCH (18:11)
[2021-01-07] MEDS: AMPICILLIN INJ 2,000 MG in SODIUM CHLORIDE 0.9% 100 ML IV SCH ×4 (01:36→13:29)
[2021-01-07] MEDS: ALBUTEROL/IPRATROPIUM 3 ML NEB RESP TX SCH ×3 (01:42→13:09)
[2021-01-07] MEDS: LACTULOSE 20 GM/30 ML UDCUP PO SCH ×2 (05:34→12:04)
[2021-01-07 06:02] LABS: Basophils # 0.1 10*3/uL (0.0-0.2); Eosinophils # 0.2 10*3/uL (0.0-0.87); Eosinophils % 3.1 % (0.00-10.9); Hematocrit 26.6 VOL% (42.0-52.0); Hemoglobin 8.7 GM/DL (14.0-18.0); Immature Granulocytes % 0.3 %; Immature Granulocytes Absolute 0.02 #; Lymphocytes % 16.8 % (21.2-54.2); Mean Corpuscular HGB Conc 32.7 GM/DL (32-36); Mean Corpuscular Volume 97.1 FL (87-102); Mean Platelet Volume 10.9 FL (9.6-12.0); Monocytes % 7.9 % (1.7-12.7); Neutrophils % 70.9 % (38.7-73.9); Platelet Count 242 T/CUMM (130-400); Red Blood Count 2.74 MC/CUMM (3.8-5.5); White Blood Count 5.7 T/CUMM (4-12)
[2021-01-07 06:14] LABS: Osmolality,Calculated 264.5 MOS/KG (273-304); Potassium 3.4 MMOL/L (3.5-5.1)
[2021-01-07] MEDS: SODIUM CHLORIDE 0.9% 1,000 ML IV SCH (06:28)
[2021-01-07] MEDS: BUDESONIDE 0.5 MG/2 ML NEB RESP TX SCH (07:08)
[2021-01-07 09:57] VITALS: BP 141/77
[2021-01-07] MEDS: ASCORBIC ACID 500 MG TABLET PO SCH (10:46)
[2021-01-07] MEDS: DOCUSATE SODIUM 100 MG CAPSULE PO SCH (10:46)
[2021-01-07] MEDS: TRIAMTERENE/HCTZ 37.5-25 MG TABLET PO SCH (10:46)
[2021-01-07] MEDS: METOPROLOL TARTRATE 25 MG TABLET PO SCH (10:46)
[2021-01-07] MEDS: BISACODYL 5 MG TABLET PO SCH (10:47)
[2021-01-07] MEDS: POTASSIUM CHLORIDE 20 MEQ TABLET PO PRN ×2 (10:47→13:06)
[2021-01-07] MEDS: FERROUS SULFATE 325 MG TABLET PO SCH (10:47)
[2021-01-07] MEDS: TAMSULOSIN 0.4 MG CAPSULE PO SCH (10:47)
[2021-01-07] MEDS: ENALAPRIL 20 MG TABLET PO SCH (10:47)
[2021-01-07] MEDS: PANTOPRAZOLE 40 MG VIAL IV SCH (10:48)
== END 2021-01-07 13:56 | DRG 552 ==
LOC: EDBD → EDUNIT# → N.EDINP 19:04 → N.ED 19:04 → SUATTDRO 21:36 → N.4E 22:13 → SUATTDRO 12-27 13:55 → N.2W 12-28 14:34
PROVIDERS: ADMIT Internal Medicine; ATTEND Internal Medicine